=== PATIENT | female | born 2000 | race Caucasian/White ===

== ENCOUNTER 2024-12-18 16:20 | Emergency (ER) | payer OTHER, SELFPAY ==
--- OUTSIDE RECORDS SUMMARY | 2024-12-18 16:22 | XMS_ITS | Referral Summary ---
Author Organization [facility] Address [address] [place] [address] Care Team Providers Care Buttonhole Maker Name Role Phone No, Physician Primary Care Provider [phone] Allergies No known active allergies Medications levonorgestrel (MIRENA) IUD 1 each by intrauterine route once Active Active Problems Problem Noted Date Diagnosed Date Pain in both lower legs 12/09/2021 Acute low back pain without sciatica 05/30/2019 S/P hip arthroscopy 04/11/2019 Left hip pain 03/22/2019 Labral tear of hip, degenerative 02/22/2019 Overview (02/22/2019): Added automatically from request for surgery [id number] Femoroacetabular impingement of left hip 019 Overview (02/22/2019): Added automatically from request for surgery [id number] Dysmenorrhea 02/03/2016 Exercise-induced bronchospasm 02/03/2016 Overview (12/11/2018): Overview: Mild Uses Proair very prn IMO 2017 Update Immunizations Name Administration Dates Next Due DTP 1999 DTaP 05/26/2004,02/03/2000,1999 DTaP / HiB 11/02/2000 Hep B, Adolescent or Pediatric 08/03/2000,1998,1999 HiB 1999 Hib (PRP-T) 02/03/2000,1999,1999 IPV 05/26/2004, 0,1999,10/02 Influenza, Quadrivalent, Spl it, Preservative Free, Intramuscular 10/04/2017 Influenza, Trivalent, Preser vative Free, Intramuscular 02/04/2009 MMR 05/26/2004,11/02/2000 Meningococcal B, OMV (Bexsero) 10/04/2017 Meningococcal Conjugate (Menveo) 08/12/2011 Meningococcal MCV4P (Menactra) 02/03/2016 Pneumococcal Conjugate 7-Valent 09/05/2001 Tdap 08/12/2011,05/21/2010 Varicella 02/16/2010,08/03/2000 Social History Tobacco Use Types Packs/Day Years Used Date Smoking Tobacco: Never Smokeless Tobacco: Never Personal Safety Answer Date Recorded Getting School Help Needed Not on file 11/23 Comments Unknown Sex and Gender Information Value Date Recorded Sex Assigned at Not on file Legal Sex Female 3:06 PM 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 CARE 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 Gender Identity Not on file Sexual Orientation Not on file Last Filed Vital Signs Vital Sign Reading Time Taken Comments Blood Pressure 111/72 10/07/2021 2:03 PM URGENT CARE TECHNICIAN Pulse 62 10/07/2021 2:03 PM URGENT CARE TECHNICIAN Temperature 36.7 ??C (98.1 ??F) 03/19/2019 2:00 PM CD T Respiratory Rate 9 03/19/2019 1:00 PM CDT Oxygen Saturation 97% 03/19/2019 1:00 PM CDT Inhaled Oxygen Concentration - - Weight 61.8 kg (136 lb 3.2 oz) 12/09/2021 4:05 P M URGENT CARE TECHNICIAN Height 165.1 cm (5' 5 ) 10/07/2021 2:03 PM URGENT CARE TECHNICIAN Body Mass Index 22.66 10/07/2021 2:03 PM URGENT CARE TECHNICIAN Plan of Treatment Not on file Medical Devices Implanted Type Area Soft Hat Binder Device Identifier Shelf Expiration Date Model / Serial / Lot Other - See Comments Other - see comments Other - see comments Description:Contraceptive im plant [employer] [id number] [employer] S[employer] K[employer] Traffic Rate Computer Lock [place] Suture Labrum - [id number] Implanted:Qty : 1 on 03/19/2019 by Bobby Gastelum MD at [facility] Other - see comments Left: Hip [employer] 06/27/2020 [id number] / / [id number] Description:Suture anchor [employer] [id number] [employer] [place] Traffic Rate Computer Lock [place] Suture Labrum - [id number] Implanted:Qty : 1 on 03/19/2019 by Bobby Gastelum MD at [facility] Other - see comments Left: Hip [employer] 05/06/2020 [id number] / / [id number] Description:Suture anchor [employer] [id number] Cinch[employer] S[employer] [place] Traffic Rate Computer Lock [place] Suture Labrum - [id number] Implanted:Qty : 1 on 03/19/2019 by Bobby Gastelum MD at [facility] Other - see comments Left: Hip [employer] 06/27/2020 [id number] / / [id number] Description:Suture anchor [employer] 25-1800 Q-Fix 1.8mm [place] Suture - [id number] Implanted:Qty : 1 on 03/19/2019 by Bobby Gastelum MD at [facility] Other - see comments Left: Hip [employer] 11/23/2021 25-1800 / / [id number] Description:Suture anchor [employer] 25-1800 Q-Fix 1.8mm [place] Suture - [id number] Implanted:Qty : 1 on 03/19/2019 by Bobby Gastelum MD at [facility] Other - see comments Left: Hip [employer] 11/23/2021 25-1800 / / [id number] Description:Suture anchor Insurance COMMERCIAL GENERIC MAIL CODE [id number] [place] [address] COMMERCIAL GENERIC [employer] COMMERCIAL GENERIC [facility] ACCESS COMMERCIAL GENERIC COMMERCIAL GENERIC Advance Directives For more information, please contact: [phone] Documents on File Type Date Recorded 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
--- OUTSIDE RECORDS SUMMARY | 2024-12-18 16:22 | XMS_ITS | Clinical Summary ---
Author Organization [facility] Address [address] [place] [address] Care Team Providers Care Day Care Center Director Name Role Phone No, Physician Primary Care Provider [phone] Allergies No known active allergies Medications levonorgestrel (MIRENA) IUD 1 each by intrauterine route once Active Active Problems Problem Noted Date Diagnosed Date Pain in both lower legs 12/09/2021 Acute low back pain without sciatica 05/30/2019 S/P hip arthroscopy 04/11/2019 Left hip pain 03/22/2019 Labral tear of hip, degenerative 02/22/2019 Overview (02/22/2019): Added automatically from request for surgery [id number] Femoroacetabular impingement of left hip 019 Overview (02/22/2019): Added automatically from request for surgery [id number] Dysmenorrhea 02/03/2016 Exercise-induced bronchospasm 02/03/2016 Overview (12/11/2018): [...] Conjugate 7-Valent 09/05/2001 Tdap 08/12/2011,05/21/2010 Varicella 02/16/2010,08/03/2000 Surgical History Surgery Date Site/Laterality Comments FLUORO GUIDED ASPIRATION OR INJECTION LARGE JOINT LEFT 02/20/2019 Left TRIGGER FINGER RELEASE age 1 Medical History Medical History Date Comments Asthma Femoroacetabular impingement of left hip 9 Added automatically from request for surgery [id number] Family History Medical History Relation Name Comments Hypertension Father Migraines Mother Cancer Other Hypertension Other Relation Name Status Comments Father Mother Alive Other Social History Tobacco Use Types Packs/Day Years Used Date Smoking Tobacco: Never Smokeless Tobacco: Never Personal Safety Answer Date Recorded Getting School Help Needed Not on file 11/23 Comments Unknown Sex and Gender Information Value Date Recorded Sex Assigned at Not on file Legal Sex Female 3:06 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 Gender Identity Not on file Sexual Orientation Not on file Obstetrics History Last Filed Vital Signs Vital Sign Reading Time Taken Comments Blood Pressure 111/72 10/07/2021 2:03 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 Pulse 62 10/07/2021 2:03 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 Temperature 36.7 ??C (98.1 ??F) 03/19/2019 2:00 PM CD T Respiratory Rate 9 03/19/2019 1:00 PM CDT Oxygen Saturation 97% 03/19/2019 1:00 PM CDT Inhaled Oxygen Concentration - - Weight 61.8 kg (136 lb 3.2 oz) 12/09/2021 4:05 P M BLUEPRINTING AND PHOTOCOPY SUPERVISOR Height 165.1 cm (5' 5 ) 10/07/2021 2:03 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 Body Mass Index 22.66 10/07/2021 2:03 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 Plan of Treatment Not on file Medical Devices Implanted Type Area Body Maker Machine Setter Device Identifier Shelf Expiration Date Model / Serial / Lot Other - See Comments Other - see comments Other - see comments Description:Contraceptive im plant [employer] [id number] Cinchlock Ss Knotless Production Material Handler Lock [place] Suture Labrum - [id number] Implanted:Qty : 1 on 03/19/2019 by Bobby Gastelum MD at [facility] Other - see comments Left: Hip [employer] 06/27/2020 [id number] / / [id number] Description:Suture anchor [employer] [id number] Cinchlock Ss Knot[employer] Production Material Handler Lock [place] Suture Labrum - [id number] Implanted:Qty : 1 on 03/19/2019 by Bobby Gastelum MD at [facility] Other - see comments Left: Hip [employer] 05/06/2020 [id number] / / [id number] Description:Suture anchor [employer] [id number] Cinchlock Ss Knotless Production Material Handler Lock [place] Suture Labrum - [id number] Implanted:Qty : 1 on 03/19/2019 by Bobby Gastelum MD at [facility] Other - see comments Left: Hip [employer] 06/27/2020 [id number] / / [id number] Description:Suture anchor [employer] 25-1800 Q-Fix 1.8mm [place] Suture - [id number] Implanted:Qty : 1 on 03/19/2019 by Bobby Gastelum MD at [facility] Other - see comments Left: Hip [employer] 11/23/2021-1799 / [id number] Description:Suture anchor [employer] 25-1800 Q-Fix 1.8mm [place] Suture - [id number] Implanted:Qty : 1 on 03/19/2019 by Bobby Gastelum MD at [facility] Other - see comments Left: Hip [employer] 11/23/2021-1799 / Description:Suture anchor Insurance COMMERCIAL GENERIC MAIL CODE [id number] [place] [address] COMMERCIAL GENERIC [employer] [facility] GENERIC COMMERCIAL GENERIC ANTHEM ACCESS Member Subscriber Plan / Payer ( fective 2017-Present) Name:Shelly Weaver Omero Relation to Subscriber:Other Relationship Name:EUNICE WEAVER Date of :1971 (Home) Address: [address] [place] [address] Payer ID:[id number] (NAIC) Type: [employer] Address: [address] [place] [id number] COMMERCIAL GENERIC MAIL CODE [address] [place] [address] COMMERCIAL GENERIC Advance Directives For more information, please contact: [phone] Documents on File Type Date Recorded Patient 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
--- OUTSIDE RECORDS SUMMARY | 2024-12-18 16:22 | XMS_ITS | Clinical Summary ---
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 Gender Identity Not on file Sexual Orientation Not on file Plan of Treatment Health Maintenance Due Date Last Done Comments Hepatitis C Virus (HCV) Screening 1999 TdaP Immunization 1999 Human Papillomavirus (HPV) Immunization (1 - 3-dose series) 2014 Hepatitis B Immunization (1 of 3 - 19+ 3-dose series) 2018 Pap Smear 2020 Influenza Immunization (#1) 2024 SARS-COV-2 Immunization (2023-25 season) 2024 Respiratory Syncytial Virus (RSV) Immunization (Adult) (1 - 1-dose 75+ series) 2074 Meningococcal Immunization (ACWY) Aged Out No longer eligible based on patient's age to complete this topic Pneumococcal Immunization Combined Aged Out No longer eligible based on patient's age to complete this topic Rotavirus Immunization Aged Out No lo nger eligible based on patient's age to complete this topic Insurance [employer] COMMERCIAL GENERIC on file
[2024-12-18 16:32] VITALS: BP 136/83; PULSE 85; RESP 18; TEMP 36.7; O2SAT 98
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
--- OUTSIDE RECORDS SUMMARY | 2024-12-18 19:48 | XMS_ITS | Clinical Summary ---
Author Organization [facility] Medical [facility] Building [address] Address [address] [place] [address] Care Team Providers Care Furnace Combustion Tester Name Role Phone No, Physician Primary Care Provider [phone] Allergies No known active allergies Medications levonorgestrel (MIRENA) IUD 1 each by intrauterine route once Active Active Problems Problem Noted Date Diagnosed Date Pain in both lower legs 12/09/2021 Acute low back pain without sciatica 05/30/2019 S/P hip arthroscopy 04/11/2019 Left hip pain 03/22/2019 Labral tear of hip, degenerative 02/22/2019 Overview (02/22/2019): Added automatically from request for surgery [id number] Femoroacetabular impingement of left hip 019 Overview (02/22/2019): Added automatically from request for surgery [id number] Dysmenorrhea 02/03/2016 Exercise-induced bronchospasm 02/03/2016 Overview (12/11/2018): [...] 9 Added automatically from request for surgery [id number] Family History Medical History Relation Name Comments [...] on file Legal Sex Female 3:06 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 Gender Identity Not on file Sexual Orientation Not on file Obstetrics History Last Filed Vital Signs Vital Sign Reading Time Taken Comments Blood Pressure 111/72 10/07/2021 2:03 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 Pulse 62 10/07/2021 2:03 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 Temperature 36.7 ??C (98.1 ??F) 03/19/2019 2:00 PM CD T Respiratory Rate 9 03/19/2019 1:00 PM CDT Oxygen Saturation 97% 03/19/2019 1:00 PM CDT Inhaled Oxygen Concentration - - Weight 61.8 kg (136 lb 3.2 oz) 12/09/2021 4:05 P M BOILER SERVICE TECHNICIAN Height 165.1 cm (5' 5 ) 10/07/2021 2:03 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 Body Mass Index 22.66 10/07/2021 2:03 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 Plan of Treatment Not on file Medical Devices Implanted Type Area Net Software Architect Device Identifier Shelf Expiration Date Model / Serial / Lot Other - See Comments Other - see comments Other - see comments Description:Contraceptive im plant [employer] [id number] Cinchlock Ss Knotless Hardware Installer Lock [place] Suture Labrum - [id number] Implanted:Qty : 1 on 03/19/2019 by Bobby Gastelum MD at [facility] Other - see comments Left: Hip [employer] 06/27/2020 [id number] / / [id number] Description:Suture anchor [employer] [id number] Cinchlock Ss Knotless Hardware Installer Lock [place] Suture Labrum - [id number] Implanted:Qty : 1 on 03/19/2019 by Bobby Gastelum MD at [facility] Other - see comments Left: Hip [employer] 05/06/2020 [id number] / / [id number] Description:Suture anchor [employer] [id number] Cinchlock Ss Knotless Hardware Installer Lock [place] Suture Labrum - [id number] Implanted:Qty : 1 on 03/19/2019 by Bobby Gastelum MD at [facility] Other - see comments Left: Hip [employer] 06/27/2020 [id number] / / [id number] Description:Suture anchor [employer] 25-1800 Q-Fix 1.8mm [place] Suture - [id number] Implanted:Qty : 1 on 03/19/2019 by Bobby Gastelum MD at [facility] Other - see comments Left: Hip [employer] 11/23/2021-1799 / [id number] Description:Suture anchor [employer] 25-1800 Q-Fix 1.8mm [place] Suture - [id number] Implanted:Qty : 1 on 03/19/2019 by Bobby Gastelum MD at [facility] Other - see comments Left: Hip [employer] 11/23/2021-1799 / Description:Suture anchor Insurance COMMERCIAL GENERIC [address] [place] [address] COMMERCIAL GENERIC [employer] [facility] GENERIC COMMERCIAL GENERIC ANTHEM ACCESS Member Subscriber Plan / Payer ( fective 2017-Present) Name:Shelly Weaver Omero Relation to Subscriber:Other Relationship Name:EUNICE WEAVER Date of :1971 (Home) Address: [address] [place] [address] Payer ID:[id number] (NAIC) Type: [employer]oule Address: [address] [place] [id number] COMMERCIAL GENERIC MAIL [address] [place] [address] COMMERCIAL GENERIC Advance Directives For more information, please contact: [phone] Documents on File Type Date Recorded Patient 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
--- OUTSIDE RECORDS SUMMARY | 2024-12-18 19:48 | XMS_ITS | Clinical Summary ---
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
--- OUTSIDE RECORDS SUMMARY | 2024-12-18 19:48 | XMS_ITS | Referral Summary ---
Author Organization [facility] Medical Office Building [address] Address [address] [place] [address] Care Team Providers Care Mud Temperer Name Role Phone No, Physician Primary Care Provider [phone] Allergies No known active allergies Medications levonorgestrel (MIRENA) IUD 1 each by intrauterine route once Active Active Problems Problem Noted Date Diagnosed Date Pain in both lower legs 12/09/2021 Acute low back pain without sciatica 05/30/2019 S/P hip arthroscopy 04/11/2019 Left hip pain 03/22/2019 Labral tear of hip, degenerative 02/22/2019 Overview (02/22/2019): Added automatically from request for surgery [id number] Femoroacetabular impingement of left hip 019 Overview (02/22/2019): Added automatically from request for surgery [id number] Dysmenorrhea 02/03/2016 Exercise-induced bronchospasm 02/03/2016 Overview (12/11/2018): [...] on file Legal Sex Female 3:06 PM SAS DEVELOPER Gender Identity Not on file Sexual Orientation Not on file Last Filed Vital Signs Vital Sign Reading Time Taken Comments Blood Pressure 111/72 10/07/2021 2:03 PM SAS DEVELOPER Pulse 62 10/07/2021 2:03 PM SAS DEVELOPER Temperature 36.7 ??C (98.1 ??F) 03/19/2019 2:00 PM CD T Respiratory Rate 9 03/19/2019 1:00 PM CDT Oxygen Saturation 97% 03/19/2019 1:00 PM CDT Inhaled Oxygen Concentration - - Weight 61.8 kg (136 lb 3.2 oz) 12/09/2021 4:05 P M SAS DEVELOPER Height 165.1 cm (5' 5 ) 10/07/2021 2:03 PM SAS DEVELOPER Body Mass Index 22.66 10/07/2021 2:03 PM SAS DEVELOPER Plan of Treatment Not on file Medical Devices Implanted Type Area Instructional Coordinator Device Identifier Shelf Expiration Date Model / Serial / Lot Other - See Comments Other - see comments Other - see comments Description:Contraceptive im plant [employer] [id number] Cinchlock Ss Knotless Galley Worker Lock [place] Suture Labrum - [id number] Implanted:Qty : 1 on 03/19/2019 by Bobby Gastelum MD at [facility] Other - see comments Left: Hip [employer] 06/27/2020 [id number] / / [id number] Description:Suture anchor [employer] [id number] Cinchlock Ss Knotless Galley Worker Lock [place] Suture Labrum - [id number] Implanted:Qty : 1 on 03/19/2019 by Bobby Gastelum MD at [facility] Other - see comments Left: Hip [employer] 05/06/2020 [id number] / / [id number] Description:Suture anchor [employer] [id number] Cinchlock Ss Knotless Galley Worker Lock [place] Suture Labrum - [id number] Implanted:Qty : 1 on 03/19/2019 by Bobby Gastelum MD at [facility] Other - see comments Left: Hip [employer] 06/27/2020 [id number] / / [id number] Description:Suture anchor [employer] 25-1800 Q-Fix 1.8mm [place] Suture - [id number] Implanted:Qty : 1 on 03/19/2019 by Bobby Gastelum MD at [facility] Other - see comments Left: Hip [employer] 11/23/2021 25-1800 / / [id number] Description:Suture anchor [employer] 25-1800 Q-Fix 1.8mm [place] Suture - [id number] Implanted:Qty : 1 on 03/19/2019 by Bobby Gastelum MD at [facility] Other - see comments Left: Hip [employer] 11/23/2021 25-1800 / / [id number] Description:Suture anchor Insurance COMMERCIAL GENERIC MAIL CODE [address] [place] [address] COMMERCIAL GENERIC A[employer] COMMERCIAL GENERIC [facility] ACCESS COMMERCIAL GENERIC COMMERCIAL GENERIC Advance Directives For more information, please contact: [phone] Documents on File Type Date Recorded Patient Public Policy Professor Expl anation ADVANCE DIRECTIVE 04/11/2019 9:57 AM ADVANCE DIRECTIVE 03/19/2019 6:34 AM Care Teams Mud Temperer Relationship Specialty Start Date End Date No, Physician PCP - General 12/05/18
[2024-12-18 20:27] VITALS: BP 118/65; PULSE 67; RESP 18; TEMP 36.7; O2SAT 99
== END 2024-12-18 20:28 | disposition home or self-care (01) ==
PROVIDERS: Emergency Provider Registered Nurse
DX: S01.511A Laceration without foreign body of lip, initial encounter (principal); W51.XXXA Accidental striking against or bumped into by another person, initial encounter
CPT/HCPCS: 99282